=== PATIENT | male | born 1930 | race Caucasian/White ===

== ENCOUNTER 2016-08-02 12:33 | Emergency (ER) | payer OTHER ==
[~2016-08-02] VITALS: Ht 162.6 cm; Wt 56.4 kg
[~2016-08-02 12:33] MED LIST: ZOC10 PO; [UNRECOGNIZED DRUG - OTHER] PO
[2016-08-02 12:52] VITALS: BP 136/77
== END 2016-08-02 13:37 | disposition home or self-care (01) ==
LOC: ED 12:33
DX: R74.8 Abnormal levels of other serum enzymes (principal); C90.00 Multiple myeloma not having achieved remission; Z85.46 Personal history of malignant neoplasm of prostate

== ENCOUNTER 2016-09-03 14:17 | Emergency (ER) | payer OTHER ==
[2016-09-03 15:03] LABS: BASOPHIL % 0.5 % (0-2); PLATELET COUNT 147 x10^3mcL (130-400)
[2016-09-03 15:04] LABS: RED CELL DISTRIBUTION WIDTH 15.5 % (11.5-14.5)
[2016-09-03 15:09] LABS: CALCIUM 8.9 mg/dL (8.5-10.1); CARBON DIOXIDE 26.3 mmol/L (21-32); CHLORIDE SERUM 99 mmol/L (98-107); CREATININE SERUM 1.8 mg/dL (0.7-1.3); GLUCOSE SERUM 113 mg/dL (74-106); POTASSIUM SERUM 4.8 mmol/L (3.5-5.1); SODIUM SERUM 136 mmol/L (136-145)
[2016-09-03 15:15] LABS: ALKALINE PHOSPHATASE 770 U/L (46-116); ALT/SGPT 28 U/L (16-63); AST/SGOT 92 U/L (15-37); BILIRUBIN TOTAL 0.33 mg/dL (0.20-1.00); TOTAL PROTEIN, SERUM 8.2 g/dL (6.4-8.2)
[2016-09-03 15:19] LABS: ALBUMIN 3.2 g/dL (3.4-5.0)
[2016-09-03 16:08] LABS: UA SPECIFIC GRAVITY <=1.005 (1.005-1.035); microscopic required? YES; urine erythrocyte 1+ (NEGATIVE)
[2016-09-03 16:15] VITALS: BP 138/73
[2016-09-04] MEDS ORDERED: ZOFRAN ODT8 MG PO (12:56)
[2016-09-04] MEDS ORDERED: FLO4 PO (12:58)
== END 2016-09-03 16:15 | disposition left against medical advice (07) ==
LOC: ED 14:17
PROVIDERS: Emergency Medicine
DX: R06.00 Dyspnea, unspecified (principal); I45.2 Bifascicular block; N28.9 Disorder of kidney and ureter, unspecified; Z95.5 Presence of coronary angioplasty implant and graft
CPT/HCPCS: 36415; 83880; Q0092

== ENCOUNTER 2016-09-03 23:55 | Inpatient (IN) | payer OTHER ==
[~2016-09-03] VITALS: Ht 160 cm; Wt 56.2 kg
[2016-09-04 00:47] LABS: PLATELET COUNT 136 x10^3mcL (130-400)
[2016-09-04 00:48] LABS: BASOPHIL % 0 % (0-2); RED CELL DISTRIBUTION WIDTH 15.4 % (11.5-14.5)
[2016-09-04 00:59] LABS: CALCIUM 9.1 mg/dL (8.5-10.1); CARBON DIOXIDE 25.1 mmol/L (21-32); CHLORIDE SERUM 100 mmol/L (98-107); GLUCOSE SERUM 169 mg/dL (74-106); POTASSIUM SERUM 4.1 mmol/L (3.5-5.1); SODIUM SERUM 135 mmol/L (136-145)
[2016-09-04 01:07] LABS: ALBUMIN 3.2 g/dL (3.4-5.0); ALKALINE PHOSPHATASE 801 U/L (46-116); ALT/SGPT 71 U/L (16-63); AST/SGOT 143 U/L (15-37); BILIRUBIN TOTAL 0.4 mg/dL (0.20-1.00); TOTAL PROTEIN, SERUM 7.9 g/dL (6.4-8.2)
[2016-09-04 02:52] VITALS: BP 122/49
[2016-09-04 03:06] LABS: MAGNESIUM 2.3 mg/dL (1.8-2.4); PHOSPHOROUS 2.6 mg/dL (2.5-4.9)
[2016-09-04 03:14] LABS: FREE T4 1.55 ng/dL (0.76-1.46); FREE THYROXINE INDEX 3.9 ug/dL (1.4-4.5); T4(THYROXINE) 10.6 ug/dL (4.7-13.3)
[2016-09-04 04:07] LABS: T3 TOTAL 0.96 ng/mL
[2016-09-04 06:12] VITALS: BP 101/50
[2016-09-04 09:34] LABS: BASOPHIL % 0.4 % (0-2)
[2016-09-04 09:51] LABS: PLATELET COUNT 122 x10^3mcL (130-400); RED CELL DISTRIBUTION WIDTH 15.6 % (11.5-14.5)
[2016-09-04 09:53] LABS: CALCIUM 8.7 mg/dL (8.5-10.1); CARBON DIOXIDE 26.7 mmol/L (21-32); CHLORIDE SERUM 104 mmol/L (98-107); CREATININE SERUM 1.8 mg/dL (0.7-1.3); GLUCOSE SERUM 131 mg/dL (74-106); MAGNESIUM 2.2 mg/dL (1.8-2.4); PHOSPHOROUS 3.7 mg/dL (2.5-4.9); POTASSIUM SERUM 4.4 mmol/L (3.5-5.1); SODIUM SERUM 137 mmol/L (136-145)
[2016-09-04 10:06] VITALS: BP 91/47
[2016-09-04 12:56] VITALS: BP 91/50
[2016-09-04] MEDS ORDERED: ZOFRAN ODT8 MG PO (12:56)
[2016-09-04] MEDS ORDERED: FLO4 PO (12:58)
== END 2016-09-04 13:35 | disposition home or self-care (01) | DRG 391 ==
LOC: ED 23:55 → DU 09-04 02:05
PROVIDERS: Emergency Medicine; ADMIT Family Medicine
DX: R11.2 Nausea with vomiting, unspecified (principal); N17.0 Acute kidney failure with tubular necrosis; E44.0 Moderate protein-calorie malnutrition; C79.51 Secondary malignant neoplasm of bone; C78.7 Secondary malignant neoplasm of liver and intrahepatic bile duct; C61 Malignant neoplasm of prostate; D64.9 Anemia, unspecified; M62.50 Muscle wasting and atrophy, not elsewhere classified, unspecified site; I25.10 Atherosclerotic heart disease of native coronary artery without angina pectoris; D53.9 Nutritional anemia, unspecified; Z68.22 Body mass index [BMI] 22.0-22.9, adult; Z95.5 Presence of coronary angioplasty implant and graft; Z85.79 Personal history of other malignant neoplasms of lymphoid, hematopoietic and related tissues
CPT/HCPCS: 83880; 84439; G0480; J2550; J7030; J8597; Q0092

== ENCOUNTER 2016-12-06 20:53 | Emergency (ER) | payer OTHER ==
[~2016-12-06 20:53] MED LIST changes: +FLO4 PO; +ZOFRAN ODT8 MG PO
[2016-12-06 21:59] LABS: BASOPHIL % 0.6 % (0-2); PLATELET COUNT 136 x10^3mcL (130-400)
[2016-12-06 22:04] LABS: RED CELL DISTRIBUTION WIDTH 15.1 % (11.5-14.5)
[2016-12-06 22:05] LABS: CARBON DIOXIDE 22.4 mmol/L (21-32); CHLORIDE SERUM 102 mmol/L (98-107); CREATININE SERUM 1.5 mg/dL (0.7-1.3); GLUCOSE SERUM 108 mg/dL (74-106); POTASSIUM SERUM 3.9 mmol/L (3.5-5.1); SODIUM SERUM 135 mmol/L (136-145)
[2016-12-06 22:23] LABS: ALT/SGPT 21 U/L (16-63); AMYLASE 62 U/L (25-115); AST/SGOT 181 U/L (15-37); BILIRUBIN TOTAL 0.48 mg/dL (0.20-1.00); LIPASE 139 IU/L (73-393); TOTAL PROTEIN, SERUM 7.9 g/dL (6.4-8.2)
[2016-12-06 22:26] LABS: ALBUMIN 3.1 g/dL (3.4-5.0)
[2016-12-06 22:27] LABS: CK-MB 2.9 ng/mL (0-3.6)
[2016-12-06 23:12] LABS: microscopic required? YES; urine erythrocyte 1+ (NEGATIVE)
[2016-12-06 23:16] LABS: ALKALINE PHOSPHATASE 232 U/L (46-116)
[2016-12-07 00:05] VITALS: BP 147/66
== END 2016-12-07 00:05 | disposition home or self-care (01) ==
LOC: ED 20:53
PROVIDERS: Emergency Medicine
DX: K59.00 Constipation, unspecified (principal); Z98.890 Other specified postprocedural states; Z86.79 Personal history of other diseases of the circulatory system
CPT/HCPCS: 36415; Q0092

== ENCOUNTER 2017-01-02 15:42 | Inpatient (IN) | payer OTHER ==
[~2017-01-02] VITALS: Ht 160 cm; Wt 53.2 kg
[2017-01-02 16:52] LABS: BASOPHIL % 0.4 % (0-2)
[2017-01-02 16:53] LABS: CALCIUM 8.4 mg/dL (8.5-10.1); CARBON DIOXIDE 20.6 mmol/L (21-32); CHLORIDE SERUM 107 mmol/L (98-107); CREATININE SERUM 1.4 mg/dL (0.7-1.3); GLUCOSE SERUM 111 mg/dL (74-106); POTASSIUM SERUM 3.4 mmol/L (3.5-5.1); SODIUM SERUM 138 mmol/L (136-145)
[2017-01-02 16:58] LABS: ALT/SGPT 11 U/L (16-63); AST/SGOT 112 U/L (15-37); BILIRUBIN TOTAL 0.5 mg/dL (0.20-1.00); LIPASE 113 IU/L (73-393); TOTAL PROTEIN, SERUM 7.3 g/dL (6.4-8.2)
[2017-01-02 17:00] LABS: ALBUMIN 2.9 g/dL (3.4-5.0)
[2017-01-02 17:31] LABS: PLATELET COUNT 124 x10^3mcL (130-400); RED CELL DISTRIBUTION WIDTH 16.1 % (11.5-14.5)
[2017-01-02 17:58] LABS: ALKALINE PHOSPHATASE 2419 U/L (46-116)
[2017-01-02] MEDS ORDERED: AVODART0.5 M1 PO (19:42)
[2017-01-02 21:12] VITALS: BP 118/49
[2017-01-02 21:17] VITALS: Ht 160 cm; Wt 53.2 kg
[2017-01-02 21:20] LABS: CHOLESTEROL/HDL RATIO 2.8; MAGNESIUM 2.3 mg/dL (1.8-2.4); PHOSPHOROUS 2.3 mg/dL (2.5-4.9)
[2017-01-02 21:26] LABS: T3 TOTAL 0.77 ng/mL
[2017-01-02 21:51] LABS: FREE T4 1.41 ng/dL (0.76-1.46); FREE THYROXINE INDEX 3.5 ug/dL (1.4-4.5); T4(THYROXINE) 8.5 ug/dL (4.7-13.3)
[2017-01-03 03:21] LABS: microscopic required? YES; urine erythrocyte 2+ (NEGATIVE)
[2017-01-03 03:30] LABS: AMPHETAMINE QUAL UR NONE DETECTED (NEG <=1000)
[2017-01-03 05:39] VITALS: BP 134/46
[2017-01-03 06:37] LABS: CALCIUM 8.2 mg/dL (8.5-10.1); CARBON DIOXIDE 22.9 mmol/L (21-32); CHLORIDE SERUM 109 mmol/L (98-107); CREATININE SERUM 1.3 mg/dL (0.7-1.3); GLUCOSE SERUM 94 mg/dL (74-106); POTASSIUM SERUM 3.7 mmol/L (3.5-5.1); SODIUM SERUM 140 mmol/L (136-145)
[2017-01-03 06:59] LABS: BASOPHIL % 0.3 % (0-2); PLATELET COUNT 115 x10^3mcL (130-400); RED CELL DISTRIBUTION WIDTH 16.1 % (11.5-14.5)
[2017-01-03 10:13] VITALS: BP 119/53
[2017-01-03 14:41] VITALS: BP 102/40
[2017-01-03 17:13] VITALS: BP 102/43
[2017-01-03 20:48] VITALS: BP 101/40
[2017-01-04 05:31] VITALS: BP 120/49
[2017-01-04 07:09] LABS: CARBON DIOXIDE 20.5 mmol/L (21-32); CHLORIDE SERUM 109 mmol/L (98-107); CREATININE SERUM 1.2 mg/dL (0.7-1.3); GLUCOSE SERUM 94 mg/dL (74-106); PHOSPHOROUS 2.5 mg/dL (2.5-4.9); POTASSIUM SERUM 3.2 mmol/L (3.5-5.1); SODIUM SERUM 139 mmol/L (136-145)
[2017-01-04 07:28] LABS: PLATELET COUNT 110 x10^3mcL (130-400)
[2017-01-04 08:37] LABS: BAND NEUTROPHIL 0 % (0-10); BASOPHIL 0 % (0-2); MONOCYTE 5 % (0-7); SEGMENTED NEUTROPHILS 49 % (37-75)
[2017-01-04 08:40] LABS: PLATELET MORPHOLOGY PLATELETS NORMAL; rbc morphology (normal/abnorm) ABNORMAL (NORMAL)
[2017-01-04 08:44] VITALS: BP 103/41
[2017-01-04 13:36] VITALS: BP 100/49
[2017-01-04 16:35] VITALS: BP 112/48
[2017-01-04 20:51] VITALS: BP 106/51
[2017-01-05 06:39] VITALS: BP 164/56
[2017-01-05 06:42] LABS: CALCIUM 7.9 mg/dL (8.5-10.1); CARBON DIOXIDE 20.2 mmol/L (21-32); CHLORIDE SERUM 110 mmol/L (98-107); CREATININE SERUM 1.2 mg/dL (0.7-1.3); GLUCOSE SERUM 98 mg/dL (74-106); MAGNESIUM 1.9 mg/dL (1.8-2.4); PHOSPHOROUS 2.7 mg/dL (2.5-4.9); POTASSIUM SERUM 3.2 mmol/L (3.5-5.1); SODIUM SERUM 141 mmol/L (136-145)
[2017-01-05 07:05] LABS: PLATELET COUNT 113 x10^3mcL (130-400); RED CELL DISTRIBUTION WIDTH 16.2 % (11.5-14.5)
[2017-01-05 08:32] LABS: BAND NEUTROPHIL 0 % (0-10); BASOPHIL 0 % (0-2); MONOCYTE 5 % (0-7); PLATELET MORPHOLOGY PLATELETS NORMAL; SEGMENTED NEUTROPHILS 49 % (37-75); rbc morphology (normal/abnorm) ABNORMAL (NORMAL)
[2017-01-05 09:44] VITALS: BP 126/52
[2017-01-05 14:21] VITALS: BP 133/56
[2017-01-05 17:24] VITALS: BP 138/59
[2017-01-05 21:39] VITALS: BP 122/54
[2017-01-06] MEDS ORDERED: FLO4 PO (06:17)
[2017-01-06] MEDS ORDERED: ZOFRAN ODT8 MG PO (06:17)
[2017-01-06] MEDS ORDERED: DUL5 PO (06:18)
[2017-01-06 07:04] VITALS: BP 123/55
[2017-01-06 09:18] VITALS: BP 123/51
[2017-01-06 10:20] LABS: CALCIUM 8.2 mg/dL (8.5-10.1); CARBON DIOXIDE 20.5 mmol/L (21-32); CHLORIDE SERUM 108 mmol/L (98-107); CREATININE SERUM 1.2 mg/dL (0.7-1.3); GLUCOSE SERUM 103 mg/dL (74-106); MAGNESIUM 1.9 mg/dL (1.8-2.4); POTASSIUM SERUM 3.5 mmol/L (3.5-5.1); SODIUM SERUM 139 mmol/L (136-145)
[2017-01-06 11:38] LABS: RED CELL DISTRIBUTION WIDTH 15.9 % (11.5-14.5)
[2017-01-06 11:39] LABS: PLATELET COUNT 119 x10^3mcL (130-400)
[2017-01-06 11:57] LABS: ATYPICAL LYMPH 6 %; BAND NEUTROPHIL 4 % (0-10); MONOCYTE 4 % (0-7); SEGMENTED NEUTROPHILS 70 % (37-75)
[2017-01-06 11:58] LABS: PLATELET MORPHOLOGY PLATELETS DECREASED; rbc morphology (normal/abnorm) ABNORMAL (NORMAL)
[2017-01-06] MEDS ORDERED: ECO81 PO (13:01)
[2017-01-06] MEDS ORDERED: LIPI10 PO (13:01)
[2017-01-06] MEDS ORDERED: APAP/HYDROCODON1 T13 PO (13:03)
[2017-01-06 13:41] VITALS: BP 123/51
[2017-01-06] MEDS ORDERED: ZOF4 PO (14:10)
== END 2017-01-06 15:50 | disposition hospice, home (50) | DRG 843 ==
LOC: ED 15:42 → DU 20:18 → MU 01-05 08:46
PROVIDERS: Emergency Medicine; Family Medicine Sports Medicine; ADMIT Family Medicine
DX: C79.89 Secondary malignant neoplasm of other specified sites (principal); N17.0 Acute kidney failure with tubular necrosis; D68.69 Other thrombophilia; E44.0 Moderate protein-calorie malnutrition; C90.01 Multiple myeloma in remission; E11.65 Type 2 diabetes mellitus with hyperglycemia; E11.51 Type 2 diabetes mellitus with diabetic peripheral angiopathy without gangrene; C79.51 Secondary malignant neoplasm of bone; C61 Malignant neoplasm of prostate; N20.0 Calculus of kidney; K59.00 Constipation, unspecified; R80.9 Proteinuria, unspecified; E87.6 Hypokalemia; D63.0 Anemia in neoplastic disease; E83.39 Other disorders of phosphorus metabolism; D47.2 Monoclonal gammopathy; I25.10 Atherosclerotic heart disease of native coronary artery without angina pectoris; Z68.20 Body mass index [BMI] 20.0-20.9, adult; Z95.5 Presence of coronary angioplasty implant and graft; Z79.84 Long term (current) use of oral hypoglycemic drugs
CPT/HCPCS: 83880; 84439; 97110-GP; C9113; J0696; J1885; J2270; J2405; J3480; J7030; Q0092